=== PATIENT | female | born 1960 | race Caucasian/White ===

== ENCOUNTER 2020-02-20 17:00 | Emergency (ER) | payer MEDICAID ==
[~2020-02-20] VITALS: Ht 144.8 cm; Wt 76.8 kg
[~2020-02-20 17:00] MED LIST: HYDR25TA PO; LISI-604 PO; METF-414 PO
[2020-02-20 17:17] VITALS: BP 142/76
[2020-02-20] MEDS ORDERED: ALBUTEROL 6.7GM HFA INHALER ORI ONE (17:30)
[2020-02-20] MEDS ORDERED: CEFTRIAXONE 1 G PREMIX 50 ML IV ONE (19:45)
[2020-02-20 20:52] LABS: BASOPHILS % 0.2 % (0.0-2.0); EOSINOPHILS % 0.7 % (0.0-5.0); HEMATOCRIT. 36.2 % (36.0-48.0); HEMOGLOBIN. 12.3 g/dL (12.0-16.0); LYMPHOCYTES % 36.9 % (20.0-50.0); MEAN CORPUSCULAR HEMOGLOBIN 30.4 pg (28.0-32.0); MEAN CORPUSCULAR VOLUME 89.1 fL (81.0-99.0); MEAN PLATELET VOLUME 9.7 fl (7.4-10.4); MONOCYTES % 10.8 % (2.0-8.0); NEUTROPHILS % 51.4 % (40.0-76.0); PLATELET 169 x1000/uL (130-400); RED BLOOD CELL COUNT 4.06 mill/uL (4.2-5.4); RED CELL DISTRIBUTION WIDTH 13.2 % (11.6-14.6)
[2020-02-20 20:57] LABS: CHLORIDE 102 mEq/L (98-107)
[2020-02-20] MEDS ORDERED: POTASSIUM CHLORIDE 20MEQ TABLET SR PO ONE (21:30)
== END 2020-02-20 22:19 | disposition home or self-care (01) ==
LOC: ER 17:00
DX: J18.9 Pneumonia, unspecified organism (principal); I10 Essential (primary) hypertension; E11.9 Type 2 diabetes mellitus without complications; Z79.899 Other long term (current) drug therapy; F17.200 Nicotine dependence, unspecified, uncomplicated; Z20.828 Contact with and (suspected) exposure to other viral communicable diseases
CPT/HCPCS: 36415; 71045; 80053; 83880; 84484; 85025; 87635; 96365; 99285; C9803; J0696

== ENCOUNTER 2022-10-31 19:10 | Emergency (ER) | payer MEDICAID ==
[~2022-10-31] VITALS: Ht 152.4 cm; Wt 68.0 kg
[~2022-10-31 19:10] MED LIST changes: -LISI-604 PO; +LISI20TA31 PO
[2022-10-31 19:12] VITALS: O2SAT 100
[2022-10-31] MEDS ORDERED: KETOROLAC 30MG/ML VIAL IM ONE (21:15)
[2022-10-31 22:28] LABS: CLARITY URINE CLEAR (CLEAR); COLOR URINE YELLOW (YELLOW); GLUCOSE URINE 3+ (NEGATIVE); KETONES URINE NEGATIVE (NEGATIVE); LEUKOCYTE ESTERASE URINE NEGATIVE (NEGATIVE); NITRITE URINE NEGATIVE (NEGATIVE); OCCULT BLOOD URINE TRACE (NEGATIVE); PH URINE 5.5 (4.5-8.0); PROTEIN URINE NEGATIVE (NEGATIVE); SPECIFIC GRAVITY URINE 1.035 (1.005-1.030)
[2022-10-31 22:31] LABS: BACTERIA URINE NONE SEEN; RBC URINE 0-2 /hpf (0-2); WBC URINE 0-2 /hpf (0-2); YEAST URINE NONE SEEN
[2022-10-31 23:07] LABS: SQUAMOUS EPITHELIAL CELL URINE 1+ /lpf (RARE/1+)
[2022-11-01] MEDS ORDERED: LIDO700A15 TP (00:48)
[2022-11-01] MEDS ORDERED: NAPR-1176 MT (00:48)
[2022-11-01 01:09] VITALS: BP 159/79; PULSE 69; RESP 16; TEMP 98.9
== END 2022-11-01 01:29 | disposition home or self-care (01) ==
LOC: ER 19:10
DX: M54.50 Low back pain, unspecified (principal); E11.9 Type 2 diabetes mellitus without complications; Z79.899 Other long term (current) drug therapy
CPT/HCPCS: 99285; 72131; 81003; 96372; J1885